=== PATIENT | male | born 1965 | race American Indian/Alaskan Native ===

== ENCOUNTER 2018-02-21 10:55 | Emergency (ER) | payer OTHER ==
--- NOTE | 2018-02-21 13:33 | Emergency Department Report ---
ED ENT HPI - General Chief complaint: Earache Stated complaint: EAR ACHE Time Seen by Provider: 02/21/18 12:48 Source: patient Mode of arrival: Ambulatory Limitations: No Limitations - History of Present Illness Initial comments: This is a 52-year-old -Italian male who presents with right ear pain for 1 week. Patient reports pain is constant and hearing is muffled. Patient states it feels like he has been swimming. He is taking Goody powders and swimmer's eardrops [id number] with no improvement of symptoms. Denies drainage, fever, congestion, sinus pressure, nausea or vomiting, and recent travel. MD complaint: ear pain (right ear) Onset/Timin -: week(s) Location: R ear Severity: moderate Severity scale (0 -10): 6 Quality: aching, sharp, constant Consistency: constant Improves with: none Worsens with: eating Associated Symptoms: denies: fever, cough, gum swelling, toothache, pain with swallowing, sore throat, tinnitus, hearing loss (muffled hearing), discharge from ear, rhinorrhea - Related Data Previous Rx's Medication Instructions Recorded Last Taken Type Carbamide Peroxide [Ear Drops] 15 ml OT DAILY PRN #1 bottle 02/21/18 Unknown Rx Cipro/Dexameth 0.3/0.1% [Ciprodex 4 drops OT BID 5 Days #1 bottle 02/21/18 Unknown Rx OTIC] Ibuprofen [Motrin 800 MG tab] 800 mg PO Q8HR PRN #15 tablet 02/21/18 Unknown Rx Allergies Allergy/AdvReac Type Severity Reaction Status Date / Time Sulfa (Sulfonamide Allergy Unknown Verified 01/22/16 08:42 Antibiotics) ED Dental HPI - General Chief complaint: Earache Stated complaint: EAR ACHE Time Seen by Provider: 02/21/18 12:48 Source: patient Mode of arrival: Ambulatory Limitations: No Limitations - Related Data Previous Rx's Medication Instructions Recorded Last Taken Type Carbamide Peroxide [Ear Drops] 15 ml OT DAILY PRN #1 bottle 02/21/18 Unknown Rx Cipro/Dexameth 0.3/0.1% [Ciprodex 4 drops OT BID 5 Days #1 bottle 02/21/18 Unknown Rx OTIC] Ibuprofen [Motrin 800 MG tab] 800 mg PO Q8HR PRN #15 tablet 02/21/18 Unknown Rx Allergies Allergy/AdvReac Type Severity Reaction Status Date / Time Sulfa (Sulfonamide Allergy Unknown Verified 01/22/16 08:42 Antibiotics) ED Review of Systems ROS: Stated complaint: EAR ACHE Other details as noted in HPI Constitutional: denies: chills, fever ENT: ear pain (right ear). denies: throat pain, dental pain, hearing loss, epistaxis, congestion Respiratory: denies: cough, shortness of breath, wheezing Cardiovascular: denies: chest pain, palpitations Gastrointestinal: denies: abdominal pain, nausea, diarrhea Neurological: denies: headache, weakness, paresthesias Psychiatric: denies: anxiety, depression ED Past Medical Hx - Past Medical History Previous Medical History?: No - Surgical History Past Surgical History?: No - Social History Smoking Status: Never Smoker Substance Use Type: None - Medications Home Medications: Home Medications Medication Instructions Recorded Confirmed Last Taken Type Carbamide Peroxide [Ear Drops] 15 ml OT DAILY PRN #1 bottle 02/21/18 Unknown Rx Cipro/Dexameth 0.3/0.1% [Ciprodex 4 drops OT BID 5 Days #1 bottle 02/21/18 Unknown Rx OTIC] Ibuprofen [Motrin 800 MG tab] 800 mg PO Q8HR PRN #15 tablet 02/21/18 Unknown Rx ED Physical Exam - General Limitations: No Limitations General appearance: alert, in no apparent distress - ENT ENT exam: Present: mucous membranes moist, other (right ears cerumen impaction, landmarks not visible) - Respiratory Respiratory exam: Present: normal lung sounds bilaterally. Absent: respiratory distress - Cardiovascular Cardiovascular Exam: Present: regular rate, normal rhythm. Absent: systolic murmur, diastolic murmur, rubs, gallop - GI/Abdominal GI/Abdominal exam: Present: soft, normal bowel sounds - Neurological Exam Neurological exam: Present: alert, oriented X3 - Psychiatric Psychiatric exam: Present: normal affect, normal mood - Skin Skin exam: Present: warm, dry, intact, normal color. Absent: rash ED Course Vital Signs 02/21/18 10:59 Temperature 98.2 F Pulse Rate 73 Respiratory 18 Rate Blood Pressure 176/97 O2 Sat by Pulse 99 Oximetry ED Medical Decision Making - Medical Decision Making This is a 52 y.o. male presents with right ear pain for 1 week. Patient is stable and was examined by me. Vitals stable. Physical assessment susceptible of cerumen impaction of right ear. Start deborox, ciprodex, and ibuprofen. Discussed plan with patient who agreed with plan. Referral to [facility] for follow-up. Discharged home in stable condition. Follow up with PCP in 24-72 hours. Critical care attestation.: If time is entered above; I have spent that time in minutes in the direct care of this critically ill patient, excluding procedure time. ED Disposition Clinical Impression: Impacted cerumen of right ear Otitis externa Qualifiers: Otitis externa type: unspecified type Chronicity: acute Laterality: right Qualified Code(s): H60.501 - Unspecified acute noninfective otitis externa, right ear Disposition: TO HOME OR SELFCARE Is pt being admited?: No Does the pt Need Aspirin: No Condition: Stable Instructions: Cerumen Impaction (ED), Otitis Externa (ED) Additional Instructions: Give tylenol or ibuprofen for pain every 6-8 hours. Take antibiotics as prescribed to avoid recurrence of the ear infection. Avoid high altitudes, may worsen the pain during ear infection. If symptoms do not improve within 2 to 3 days, then follow up with Primary Care Provider. Prescriptions: Carbamide Peroxide [Ear Drops] 15 ml OT DAILY PRN #1 bottle PRN Reason: Ear Wax Cipro/Dexameth 0.3/0.1% [Ciprodex OTIC] 4 drops OT BID 5 Days #1 bottle Ibuprofen [Motrin 800 MG tab] 800 mg PO Q8HR PRN #15 tablet PRN Reason: Pain, Moderate (4-6) Referrals: [facility] [Outside] - 3-5 Days [facility] [Outside] - 3-5 Days [facility] [Outside] - 3-5 Days Forms: Work/School Release Form(ED) Time of Disposition: 14:03 Print Language: TURKISH
[2018-02-21 15:15] VITALS: BP 172/86
== END 2018-02-21 14:37 | disposition home or self-care (01) ==
LOC: ED 10:55
DX: H61.21 Impacted cerumen, right ear (principal); H60.501 Unspecified acute noninfective otitis externa, right ear; Z88.2 Allergy status to sulfonamides
CPT/HCPCS: 99282

== ENCOUNTER 2021-07-26 17:18 | Emergency (ER) | payer BC, OTHER ==
[2021-07-26 17:26] VITALS: BP 176/108
--- NOTE | 2021-07-26 18:38 | XRay Report ---
CHEST 1 VIEW 07/26/2021 6:16 PM INDICATION / CLINICAL INFORMATION: cough. COMPARISON: None available. FINDINGS: SUPPORT DEVICES: None. HEART / MEDIASTINUM: Cardiomegaly LUNGS / PLEURA: No significant pulmonary or pleural abnormality. No pneumothorax. ADDITIONAL FINDINGS: No significant additional findings. IMPRESSION: 1. No acute findings. Signer Name: Kane Garza MD Signed: 07/26/2021 6:33 PM Workstation Name: [id number]
--- NOTE | 2021-07-26 18:56 | Emergency Department Report ---
- General Chief Complaint: Dyspnea/Respdistress Stated Complaint: Cough, Congestion in Neck and Chest Time Seen by Provider: 07/26/21 17:55 Source: patient, family Mode of arrival: Ambulatory Limitations: No Limitations - History of Present Illness Initial Comments: Patient is a 55-year-old F [place] male with no significant past medical history is complaining of congestion cough for the last 2 weeks. States he feels some mild pressure in his face but no actual pain. Feels very congested with postnasal drip cough which is nonproductive. Denies fever body aches decreased taste and smell. Patient denies nausea or diarrhea. Did vomit once which he feels as though he had gagged on some mucus which caused him to vomit - Related Data Previous Rx's Medication Instructions Recorded Last Taken Type Carbamide Peroxide [Ear Drops] 15 ml OT DAILY PRN #1 bottle 02/21/18 Unknown Rx Cipro/Dexameth 0.3/0.1% [Ciprodex 4 drops OT BID 5 Days #1 bottle 02/21/18 Unknown Rx OTIC] Ibuprofen [Motrin 800 MG tab] 800 mg PO Q8HR PRN #15 tablet 02/21/18 Unknown Rx Amoxicillin/Potassium Clav 1 each PO BID #14 tablet 07/26/21 Unknown Rx [Augmentin 875-125 Tablet] Azithromycin [Zithromax Z-IRENE] 250 mg PO DAILY #6 tablet 07/26/21 Unknown Rx Benzonatate [Tessalon Perles] 100 mg PO Q8HR #10 capsule 07/26/21 Unknown Rx Ondansetron [Zofran Odt] 4 mg PO Q8HR #10 tab.rapdis 07/26/21 Unknown Rx predniSONE [Deltasone] 50 mg PO QDAY #5 tab 07/26/21 Unknown Rx Allergies Allergy/AdvReac Type Severity Reaction Status Date / Time Sulfa (Sulfonamide Allergy Unknown Verified 01/22/16 08:42 Antibiotics) ED Review of Systems ROS: Stated complaint: Cough, Congestion in Neck and Chest Other details as noted in HPI ED Past Medical Hx - Past Medical History Previous Medical History?: No - Surgical History Past Surgical History?: No - Social History Smoking Status: Never Smoker Substance Use Type: None - Medications Home Medications: Home Medications Medication Instructions Recorded Confirmed Last Taken Type Carbamide Peroxide [Ear Drops] 15 ml OT DAILY PRN #1 bottle 02/21/18 Unknown Rx Cipro/Dexameth 0.3/0.1% [Ciprodex 4 drops OT BID 5 Days #1 bottle 02/21/18 Unknown Rx OTIC] Ibuprofen [Motrin 800 MG tab] 800 mg PO Q8HR PRN #15 tablet 02/21/18 Unknown Rx Amoxicillin/Potassium Clav 1 each PO BID #14 tablet 07/26/21 Unknown Rx [Augmentin 875-125 Tablet] Azithromycin [Zithromax Z-IRENE] 250 mg PO DAILY #6 tablet 07/26/21 Unknown Rx Benzonatate [Tessalon Perles] 100 mg PO Q8HR #10 capsule 07/26/21 Unknown Rx Ondansetron [Zofran Odt] 4 mg PO Q8HR #10 tab.rapdis 07/26/21 Unknown Rx predniSONE [Deltasone] 50 mg PO QDAY #5 tab 07/26/21 Unknown Rx ED Physical Exam - General Limitations: No Limitations General appearance: alert, in no apparent distress - Head Head exam: Present: atraumatic, normocephalic - Eye Eye exam: Present: normal appearance - ENT ENT exam: Present: normal orophraynx, mucous membranes moist - Neck Neck exam: Present: normal inspection - Respiratory Respiratory exam: Present: normal lung sounds bilaterally. Absent: respiratory distress, wheezes, rales, rhonchi, stridor - Cardiovascular Cardiovascular Exam: Present: regular rate, normal rhythm, normal heart sounds. Absent: systolic murmur, diastolic murmur, rubs, gallop - GI/Abdominal GI/Abdominal exam: Present: soft, normal bowel sounds. Absent: distended, tenderness, guarding, rebound - Rectal Rectal exam: Present: deferred - Extremities Exam Extremities exam: Present: normal inspection - Back Exam Back exam: Present: normal inspection - Neurological Exam Neurological exam: Present: alert, oriented X3 - Psychiatric Psychiatric exam: Present: normal affect, normal mood - Skin Skin exam: Present: warm, dry, intact, normal color. Absent: rash ED Course Vital Signs 07/26/21 07/26/21 17:23 18:01 Temperature 98.0 F Pulse Rate 99 H Respiratory 20 Rate Blood Pressure 176/108 [Right] O2 Sat by Pulse 97 97 Oximetry ED Medical Decision Making - Radiology Data CHEST 1 VIEW 07/26/2021 6:16 PM INDICATION / CLINICAL INFORMATION: cough. COMPARISON: None available. FINDINGS: SUPPORT DEVICES: None. HEART / MEDIASTINUM: Cardiomegaly LUNGS / PLEURA: No significant pulmonary or pleural abnormality. No pneumothora x. ADDITIONAL FINDINGS: No significant additional findings. IMPRESSION: 1. No acute findings. Signer Name: Kane Garza MD Signed: 07/26/2021 6:33 PM Workstation Name: [id number] - Medical Decision Making Patient to be treated for acute bronchitis. Because of the patient's length of symptoms we will start the patient on azithromycin. Patient also given medication other medication for symptomatic relief. Critical care attestation.: If time is entered above; I have spent that time in minutes in the direct care of this critically ill patient, excluding procedure time. ED Disposition Clinical Impression: Acute bronchitis Disposition: 01 HOME / SELF CARE / HOMELESS Is pt being admited?: No Does the pt Need Aspirin: No Condition: Stable Instructions: Acute Bronchitis (ED), Acute Bronchitis, Adult, [id number] Referrals: PRIMARY CAREMD [Primary Care Provider] - 3-5 Days Time of Disposition: 18:56
== END 2021-07-26 20:18 | disposition home or self-care (01) ==
LOC: ED 17:18
DX: J02.9 Acute pharyngitis, unspecified (principal); Z88.1 Allergy status to other antibiotic agents
CPT/HCPCS: 71045; 99283

== ENCOUNTER 2021-09-06 09:23 | Emergency (ER) | payer BC ==
--- NOTE | 2021-09-06 12:52 | XRay Report ---
CHEST 2 VIEWS INDICATION: cough. COMPARISON: 07/26/2021 FINDINGS: Support devices: None. Heart: Stable borderline to mild cardiomegaly. Lungs/pleura: The lungs are clear with no evidence for pneumonia, pleural effusion or pneumothorax. Additional findings: None. IMPRESSION: No acute findings. Stable borderline to mild cardiomegaly. Lungs clear. Signer Name: Philippe Peterson Jr, MD Signed: 09/06/2021 12:48 PM Workstation Name: [id number]
--- NOTE | 2021-09-06 13:22 | Emergency Department Report ---
- General Chief Complaint: Upper Respiratory Infection Stated Complaint: VERN PUI?: No Source: patient Mode of arrival: Ambulatory Limitations: No Limitations - History of Present Illness Initial Comments: 55-year-old male complaining of cough x2 weeks with mild shortness of breath. Patient states nonproductive cough x2 weeks. Patient states that he is vaccinated x1. Denies any chest pain, nausea vomiting or diarrhea. Patient with a history of diabetes and hypertension. He is currently not taking any medication. No acute distress noted. No Ill appearance noted. MD Complaint: cough Onset/Timin -: week(s) Improves With: nothing Worsens With: nothing Associated Symptoms: denies other symptoms - Related Data Previous Rx's Medication Instructions Recorded Last Taken Type Carbamide Peroxide [Ear Drops] 15 ml OT DAILY PRN #1 bottle 02/21/18 Unknown Rx Cipro/Dexameth 0.3/0.1% [Ciprodex 4 drops OT BID 5 Days #1 bottle 02/21/18 Unknown Rx OTIC] Ibuprofen [Motrin 800 MG tab] 800 mg PO Q8HR PRN #15 tablet 02/21/18 Unknown Rx Amoxicillin/Potassium Clav 1 each PO BID #14 tablet 07/26/21 Unknown Rx [Augmentin 875-125 Tablet] Azithromycin [Zithromax Z-IRENE] 250 mg PO DAILY #6 tablet 07/26/21 Unknown Rx Benzonatate [Tessalon Perles] 100 mg PO Q8HR #10 capsule 07/26/21 Unknown Rx Ondansetron [Zofran Odt] 4 mg PO Q8HR #10 tab.rapdis 07/26/21 Unknown Rx predniSONE [Deltasone] 50 mg PO QDAY #5 tab 07/26/21 Unknown Rx Amlodipine Besylate [Norvasc] 10 mg PO DAILY 15 Days #15 tab 09/06/21 Unknown Rx Allergies Allergy/AdvReac Type Severity Reaction Status Date / Time Sulfa (Sulfonamide Allergy Unknown Verified 01/22/16 08:42 Antibiotics) ED Review of Systems ROS: Stated complaint: VERN Other details as noted in HPI Constitutional: denies: chills, fever Eyes: denies: eye pain, eye discharge, vision change ENT: denies: ear pain, throat pain Respiratory: cough, shortness of breath. denies: wheezing Cardiovascular: denies: chest pain, palpitations Endocrine: no symptoms reported Gastrointestinal: denies: abdominal pain, nausea, diarrhea Genitourinary: denies: urgency, dysuria Musculoskeletal: denies: back pain, joint swelling, arthralgia Skin: denies: rash, lesions Neurological: denies: headache, weakness, paresthesias Psychiatric: denies: anxiety, depression Hematological/Lymphatic: denies: easy bleeding, easy bruising ED Past Medical Hx - Social History Smoking Status: Never Smoker Substance Use Type: None - Medications Home Medications: Home Medications Medication Instructions Recorded Confirmed Last Taken Type Carbamide Peroxide [Ear Drops] 15 ml OT DAILY PRN #1 bottle 02/21/18 Unknown Rx Cipro/Dexameth 0.3/0.1% [Ciprodex 4 drops OT BID 5 Days #1 bottle 02/21/18 Unknown Rx OTIC] Ibuprofen [Motrin 800 MG tab] 800 mg PO Q8HR PRN #15 tablet 02/21/18 Unknown Rx Amoxicillin/Potassium Clav 1 each PO BID #14 tablet 07/26/21 Unknown Rx [Augmentin 875-125 Tablet] Azithromycin [Zithromax Z-IRENE] 250 mg PO DAILY #6 tablet 07/26/21 Unknown Rx Benzonatate [Tessalon Perles] 100 mg PO Q8HR #10 capsule 07/26/21 Unknown Rx Ondansetron [Zofran Odt] 4 mg PO Q8HR #10 tab.rapdis 07/26/21 Unknown Rx predniSONE [Deltasone] 50 mg PO QDAY #5 tab 07/26/21 Unknown Rx Amlodipine Besylate [Norvasc] 10 mg PO DAILY 15 Days #15 tab 09/06/21 Unknown Rx ED Physical Exam - General Limitations: No Limitations General appearance: alert, in no apparent distress - Head Head exam: Present: atraumatic, normocephalic - Eye Eye exam: Present: normal appearance - ENT ENT exam: Present: mucous membranes moist - Neck Neck exam: Present: normal inspection - Respiratory Respiratory exam: Present: normal lung sounds bilaterally. Absent: respiratory distress, wheezes - Cardiovascular Cardiovascular Exam: Present: regular rate, normal rhythm. Absent: systolic murmur, diastolic murmur, rubs, gallop - GI/Abdominal GI/Abdominal exam: Present: soft, normal bowel sounds - Rectal Rectal exam: Present: deferred - Extremities Exam Extremities exam: Present: normal inspection - Back Exam Back exam: Present: normal inspection - Neurological Exam Neurological exam: Present: alert, oriented X3 - Psychiatric Psychiatric exam: Present: normal affect, normal mood - Skin Skin exam: Present: warm, dry, intact, normal color. Absent: rash ED Course Vital Signs 09/06/21 09/06/21 09/06/21 09:26 13:52 14:33 Temperature 97.9 F Pulse Rate 100 H 98 H 98 H Respiratory 20 Rate Blood Pressure 181/118 172/110 Blood Pressure 172/110 [Left] O2 Sat by Pulse 98 100 Oximetry 09/06/21 15:15 Temperature Pulse Rate Respiratory Rate Blood Pressure Blood Pressure 162/106 [Left] O2 Sat by Pulse Oximetry ED Medical Decision Making - Lab Data Result diagrams: 09/06/21 14:10 09/06/21 14:10 - EKG Data EKG shows normal: sinus rhythm Rate: normal - Medical Decision Making 55-year-old male complaining of cough x2 weeks with mild shortness of breath. Patient states nonproductive cough x2 weeks. Patient states that he is vaccinated x1. Denies any chest pain, nausea vomiting or diarrhea. Patient with a history of diabetes and hypertension. He is currently not taking any medication. No acute distress noted. No Ill appearance noted. EKG , chest x-ray, and labs are unremarkable. Patient given a dose given Norvasc 10 mg in ED. BP 162\101 patient instructed to follow-up with PCP to restart medication for hypertension and diabetes. Discussed all findings with patient . Patient verbalized understanding I have spoken with the patient and/or caregiver. I have explained the patient condition, diagnosis and treatment plan based on information available to me at this time. I have answered the patient and/caregiver questions and addressed any concerns. The patient and/or caregiver have has good an understanding of the patient diagnosed condition and treatment plan as can be expected at this point. The vital signs have been stable. The patient condition is stable and appropriate for discharge from the emergency department. The patient and caregiver has been given detailed instruction in a written format and expressed understanding of discharge instruction. The patient/or caregiver are aware that any significant change in condition or worsening of symptoms should prompt an immediate return to the this or the closest emergency department or call to 911 Critical care attestation.: If time is entered above; I have spent that time in minutes in the direct care of this critically ill patient, excluding procedure time. ED Disposition Clinical Impression: URI (upper respiratory infection) Qualifiers: URI type: unspecified viral URI Qualified Code(s): J06.9 - Acute upper respiratory infection, unspecified Hypertension Qualifiers: Hypertension type: primary hypertension Qualified Code(s): I10 - Essential (primary) hypertension Disposition: HOME / SELF CARE / HOMELESS Is pt being admited?: No Does the pt Need Aspirin: No Condition: Stable Instructions: Type 2 Diabetes Mellitus, Diagnosis, Adult, Upper Respiratory Infection, Adult, Hypertension, Adult, [id number], Hypertension (ED) Prescriptions: Amlodipine Besylate [Norvasc] 10 mg PO DAILY 15 Days #15 tab Referrals: PRIMARY CARE, [Primary Care Provider] - 3-5 Days [facility] [Provider Group] - 3-5 Days
[2021-09-06 14:23] LABS: Basophils % (Auto) 0.9 % (0.0-1.8); Eosinophils % (Auto) 0.9 % (0.0-4.3); Hematocrit 34.6 % (35.5-45.6); Hemoglobin 10.9 gm/dl (11.8-15.2); Lymphocytes % (Auto) 22.6 % (13.4-35.0); Mean Corpuscular HGB Conc 31 % (32-34); Mean Corpuscular Volume 89 fl (84-94); Monocytes # (Auto) 0.2 K/mm3 (0.0-0.8); Monocytes % (Auto) 5.1 % (0.0-7.3); Platelet Count 161 K/mm3 (140-440); Red Cell Distribution Width 14.3 % (13.2-15.2)
[2021-09-06] MEDS ORDERED: amLODIPine 5 MG TAB PO ONE (14:26)
[2021-09-06 14:45] LABS: Alanine Aminotransferase 39 units/L (7-56); Albumin 3.9 g/dL (3.9-5); BUN/Creatinine Ratio 13; Blood Urea Nitrogen 13 mg/dL (9-20); Calcium 9.1 mg/dL (8.4-10.2); Hemolysis Index 2
[2021-09-06 15:16] VITALS: BP 162/106
== END 2021-09-06 15:55 | disposition home or self-care (01) ==
LOC: ED 09:23
DX: J06.9 Acute upper respiratory infection, unspecified (principal); Z88.2 Allergy status to sulfonamides; Z79.899 Other long term (current) drug therapy
CPT/HCPCS: 36415; 71046; 80053; 84484; 85025; 93005; 99283; 99284